=== PATIENT | female | born 1965 | race African-American/Black ===

== ENCOUNTER 2019-10-28 14:36 | Emergency (ER) | payer OTHER ==
[~2019-10-28] VITALS: Ht 154.9 cm; Wt 95.3 kg
[~2019-10-28 14:36] MED LIST: BACTRIM DS TAB1 EACH PO; CIPROFLOXACIN500 M1 PO; CIPROFLOXACIN500 M3 PO; HYDROCHLOROTHIA25 M1 PO; LISINOPRIL-HCT1 EAC2 PO; NORCO 5-325 TA1 EACH PO; NORFLEX100 MG PO; PERCOCET 5-3251 EACH PO; PHENERGAN 25 MG25 M1 PO; PROMETHAZINE12.5 M1 PO
[2019-10-28 14:53] LABS: URINE BILIRUBIN NEGATIVE (Negative); URINE BLOOD TRACE (Negative); URINE CLARITY CLOUDY; URINE COLOR YELLOW; URINE GLUCOSE-RANDOM* NEGATIVE (Negative); URINE KETONES NEGATIVE (Negative); URINE PROTEIN (DIPSTICK) 1+ (Negative); URINE SPECIFIC GRAVITY >= 1.030 (1.005-1.035); URINE UROBILINOGEN 0.2 E.U./dl (0.2-1.0)
[2019-10-28 14:55] LABS: URINE LEUKOCYTES-REFLEX 1+ (Negative); URINE NITRITE-REFLEX POSITIVE (Negative)
[2019-10-28 15:04] LABS: URINE RBC 0-2 Rare /HPF (0-2)
[2019-10-28 15:05] LABS: CASTS None Seen /LPF (None Seen); CRYSTALS None Seen /LPF (None Seen); SQUAMOUS 4-10 Moderate /LPF (0-3); URINE WBC-REFLEX >25 Many /HPF (0-5)
[2019-10-28 15:06] LABS: BACTERIA-REFLEX >30 Many /HPF (None Seen)
[2019-10-28] MEDS ORDERED: MACROBID 100 M100 MG PO (15:22)
[2019-10-28] MEDS ORDERED: PHENAZOPYRIDIN200 M2 PO (15:22)
[2019-10-28 15:42] VITALS: BP 144/94
== END 2019-10-28 15:43 | disposition home or self-care (01) ==
LOC: ER 14:36
PROVIDERS: Nurse Practitioner Family
DX: N39.0 Urinary tract infection, site not specified (principal)